=== PATIENT | female | born 2000 | race Caucasian/White ===

== ENCOUNTER 2021-03-30 10:38 | Outpatient (CLI) | payer OTHER, SELFPAY ==
--- NOTE | ~2021-03-30 | MR_ITS ---
EXAMINATION: MR knee RT wo con DATE: 03/30/2021 11:55 INDICATION: Right knee pain. TECHNIQUE: Magnetic resonance imaging (MRI) of the right knee was performed without intravenous contr ast. Sequences included axial PD-weighted FS FSE, coronal PD-weighted FSE and PD-weighted FS FSE, sag ittal PD-weighted FSE, and sagittal T2-weighted FS FSE. COMPARISON: None. FINDINGS: Medial compartment: Medial meniscus is normal. Medial compartment cartilage is normal. Lateral compartment: Lateral meniscus is normal. Lateral compartment cartilage is normal. Patellofemoral compartment: There is shallow partial-thickness cartilage loss of patellar medial facet. Trochlear cartilage is no rmal. Ligaments and tendons: The anterior and posterior cruciate ligaments are normal. Medial collateral ligament and fibular enid ateral ligament are normal. There is thickening and increased signal of iliotibial band with irregula r margin and surrounding edema, worst at its distal attachment. There is mild patellar tendinopathy. Fluid: There is a small knee joint effusion. There is moderate superficial infrapatellar bursitis. IMPRESSION: 1. Partial tear of iliotibial band at its distal attachment onto Gerdy's tubercle of the anterior lat eral tibia. 2. Mild patellar chondrosis. 3. Small knee joint effusion. Reviewed, dictated and finalized at location A. PROGRAMMER ANALYST IMPRESSION: 1. Partial tear of iliotibial band at its distal attachment onto Gerdy's tuberc le of the anterior lateral tibia. 2. Mild patellar chondrosis. 3. Small knee joint effusion.
== END 2021-03-30 10:39 | disposition home or self-care (01) ==
PROVIDERS: PCP Physician Assistant; Visit Provider Orthopaedic Surgery
DX: M25.561 Pain in right knee (principal); G89.29 Other chronic pain; S86.211A Strain of muscle(s) and tendon(s) of anterior muscle group at lower leg level, right leg, initial encounter; M22.2X1 Patellofemoral disorders, right knee; M25.461 Effusion, right knee
CPT/HCPCS: 73721